=== PATIENT | male | born 1980 | race Two or more races ===

== ENCOUNTER 2024-10-23 17:08 | Inpatient (IN) | payer OTHER ==
[~2024-10-23] VITALS: Ht 172.7 cm; Wt 79.5 kg
[2024-10-23 19:05] LABS: BASOPHILS % (AUTO) 1.2 % (0.0-2.0); EOSINOPHILS % (AUTO) 1.7 % (1.0-6.0); HEMATOCRIT 36.7 % (41-53); HEMOGLOBIN 12.5 g/dL (13.5-17.5); LYMPHOCYTES # (AUTO) 1.8 K/uL (1.0-4.8); LYMPHOCYTES % (AUTO) 39.7 % (22.0-44.0); MEAN CORPUSCULAR HGB CONC 34.2 G/dL (31.0-37.0); MEAN CORPUSCULAR VOLUME 91 fL (80-100); MONOCYTES # (AUTO) 0.3 K/uL (0.1-1.0); MONOCYTES % (AUTO) 6.9 % (2.0-9.0); NEUTROPHILS # (AUTO) 2.3 K/uL (1.8-7.7); NEUTROPHILS % (AUTO) 50.5 % (40.0-70.0); PLATELET COUNT (AUTO) 103 K/uL (150-450); RED BLOOD CELL COUNT(AUTO) 4.05 MIL/uL (4.50-5.90); RED CELL DISTRIBUTION WIDTH 13.3 % (11.5-14.5); WHITE BLOOD COUNT (AUTO) 4.6 K/uL (4.5-11.0)
[2024-10-23 19:16] LABS: ANION GAP 3 mmol/L (8-16); CALCIUM, TOTAL 8.6 mg/dL (8.8-10.5); CARBON DIOXIDE 33 mmol/L (22-29); CHLORIDE 106 mmol/L (98-107); CREATININE 0.75 mg/dL (0.60-1.30); GLOMERULAR FILTR. RATE CALC > 60 mL/min (>60); GLUCOSE,RANDOM 95 mg/dL (70-110); POTASSIUM 4.7 mmol/L (3.5-5.1); SODIUM SERUM 142 mmol/L (136-145); UREA NITROGEN, BLOOD 20 mg/dL (7-18)
[2024-10-23 19:21] LABS: ALBUMIN 3.3 g/dL (3.4-5.0); BILIRUBIN,DIRECT 0.1 mg/dL (0.00-0.20); BILIRUBIN,TOTAL 0.4 mg/dL (0.1-1.0); TOTAL PROTEIN, SERUM 7.4 g/dL (6.4-8.2)
[2024-10-23 20:42] LABS: APPEARANCE,URINE CLEAR (CLEAR); BILIRUBIN,URINE NEGATIVE (NEGATIVE); COLOR,URINE YELLOW (YELLOW); GLUCOSE, URINE (UA) NEGATIVE (NEGATIVE); KETONES,URINE NEGATIVE (NEGATIVE); LEUKOCYTE ESTERASE ,URINE NEGATIVE (NEGATIVE); NITRATE,URINE NEGATIVE (NEGATIVE); OCCULT BLOOD,URINE NEGATIVE (NEGATIVE); PH,URINE 6.5 (5.0-8.0); PROTEIN,URINE TRACE mg/dL (NEGATIVE)
[2024-10-23] MEDS ORDERED: BUPR1FIL7 SL (20:43)
[2024-10-23] MEDS ORDERED: VALP250C48 PO (20:43)
[2024-10-23] MEDS ORDERED: LACT10SO85 PO (20:43)
[2024-10-23] MEDS ORDERED: FLUO-342 PO (20:43)
[2024-10-23] MEDS ORDERED: OLAN10TA74 PO (20:43)
[2024-10-23] MEDS: KETOROLAC TROMETHAMINE 30 MG/ML VIAL IM ONE (22:05)
[2024-10-23] MEDS ORDERED: MORPHINE SULFATE 2 MG/ML SYRINGE IVP PRN (22:45)
[2024-10-23] MEDS ORDERED: ONDANSETRON HCL 4 MG/2 ML VIAL IVP PRN (22:45)
[2024-10-23] MEDS ORDERED: ACETAMINOPHEN 325 MG TABLET PO PRN (22:45)
[2024-10-23] MEDS ORDERED: BISACODYL 10 MG RECTAL RECTAL SUPPOSITORY PR PRN (22:45)
[2024-10-23] MEDS ORDERED: ZOLPIDEM TARTRATE 5 MG TABLET PO PRN (22:45)
[2024-10-23] MEDS ORDERED: MAGNESIUM HYDROXIDE SUSPENSION 30 ML UDCUP PO PRN (22:45)
[2024-10-24] MEDS: HEPARIN SODIUM,PORCINE 5,000 UNITS/ML VIAL SQ SCH (01:36)
[2024-10-24 02:26] VITALS: BP 140/86; PULSE 50; RESP 18; TEMP 97.7; O2SAT 99
[2024-10-24 07:30] VITALS: BP 134/86; PULSE 50; RESP 18; TEMP 97.9; O2SAT 99
[2024-10-24] MEDS: DOCUSATE SODIUM 100 MG CAPSULE PO SCH (08:18)
[2024-10-24] MEDS: PANTOPRAZOLE SODIUM 40 MG DR TABLET PO SCH (08:18)
[2024-10-24] MEDS: HYDROCODONE/ACETAMINOPHEN 5-325 MG TABLET PO PRN (08:25)
[2024-10-25] MEDS ORDERED: MIRT-89 PO (21:21)
== END 2024-10-24 22:50 | DRG 552 ==
LOC: EMS 17:08 → EDH 22:32 → 6N 10-24 01:47
PROVIDERS: ADMIT Internal Medicine; ATTEND Internal Medicine
DX: M54.50 Low back pain, unspecified (principal); M54.9 Dorsalgia, unspecified; F29 Unspecified psychosis not due to a substance or known physiological condition; K59.00 Constipation, unspecified; D64.9 Anemia, unspecified; F20.9 Schizophrenia, unspecified; G89.29 Other chronic pain; R15.9 Full incontinence of feces; R26.2 Difficulty in walking, not elsewhere classified; Z79.899 Other long term (current) drug therapy
CPT/HCPCS: 71045; 80048; 80076; 81003; 85025; 97116; 97162; 99285; G0378; J1644; J1885; 36415-L1; 36415-TC

== ENCOUNTER 2024-10-25 15:04 | Inpatient (IN) | payer OTHER ==
[~2024-10-25] VITALS: Ht 170.2 cm; Wt 68.2 kg
[~2024-10-25 15:04] MED LIST: BUPR1FIL7 SL; FLUO-342 PO; LACT10SO85 PO; OLAN10TA74 PO; VALP250C48 PO
[2024-10-25] MEDS ORDERED: ONDANSETRON HCL 4 MG/2 ML VIAL IVP PRN (21:15)
[2024-10-25] MEDS ORDERED: MIRT-89 PO (21:21)
[2024-10-25 21:25] VITALS: BP 147/100; PULSE 54; RESP 20; TEMP 97.6; O2SAT 100
[2024-10-25] MEDS: KETOROLAC TROMETHAMINE 15 MG/ML VIAL IVP PRN (21:59)
[2024-10-25] MEDS: HEPARIN SODIUM,PORCINE 5,000 UNITS/ML VIAL SQ SCH (22:14)
[2024-10-25] MEDS: OLANZapine 10 MG TABLET PO SCH (22:14)
[2024-10-25] MEDS: VALPROIC ACID 250 MG CAPSULE PO SCH (22:15)
[2024-10-26 05:09] VITALS: BP 117/72; PULSE 49; RESP 18; TEMP 97.6; O2SAT 98
[2024-10-26 08:03] LABS: BASOPHILS % (AUTO) 0.8 % (0.0-2.0); EOSINOPHILS % (AUTO) 2.6 % (1.0-6.0); HEMATOCRIT 34.9 % (41-53); LYMPHOCYTES # (AUTO) 2.2 K/uL (1.0-4.8); LYMPHOCYTES % (AUTO) 54.2 % (22.0-44.0); MEAN CORPUSCULAR HEMOGLOBIN 31.2 pg (26.0-34.0); MEAN CORPUSCULAR HGB CONC 34.4 G/dL (31.0-37.0); MEAN CORPUSCULAR VOLUME 91 fL (80-100); MONOCYTES # (AUTO) 0.3 K/uL (0.1-1.0); MONOCYTES % (AUTO) 6.8 % (2.0-9.0); NEUTROPHILS # (AUTO) 1.5 K/uL (1.8-7.7); NEUTROPHILS % (AUTO) 35.6 % (40.0-70.0); PLATELET COUNT (AUTO) 108 K/uL (150-450); RED BLOOD CELL COUNT(AUTO) 3.85 MIL/uL (4.50-5.90); WHITE BLOOD COUNT (AUTO) 4.1 K/uL (4.5-11.0)
[2024-10-26 08:12] LABS: ANION GAP 7 mmol/L (8-16); CALCIUM, TOTAL 8.1 mg/dL (8.8-10.5); CARBON DIOXIDE 29 mmol/L (22-29); CHLORIDE 108 mmol/L (98-107); CREATININE 0.72 mg/dL (0.60-1.30); GLOMERULAR FILTR. RATE CALC > 60 mL/min (>60); GLUCOSE,RANDOM 88 mg/dL (70-110); POTASSIUM 3.8 mmol/L (3.5-5.1); SODIUM SERUM 144 mmol/L (136-145); UREA NITROGEN, BLOOD 20 mg/dL (7-18)
[2024-10-26 08:53] VITALS: BP 117/73; PULSE 49; RESP 19; TEMP 97.6; O2SAT 98
[2024-10-26] MEDS: LACTULOSE 20 GM/30 ML SOLUTION UDCUP PO SCH (08:55)
[2024-10-26] MEDS: FLUoxetine HCL 10 MG CAPSULE PO SCH (08:55)
[2024-10-26] MEDS: DOCUSATE SODIUM 100 MG CAPSULE PO SCH (08:55)
[2024-10-26] MEDS ORDERED: VALPROIC ACID 250 MG CAPSULE PO SCH (09:00)
[2024-10-26] MEDS: LORazepam 1 MG TABLET PO PRN (10:08)
[2024-10-26] MEDS: BUPRENORPHINE HCL/NALOXONE HCL 8-2 MG SUBLINGUAL TABLET SL SCH (16:54)
[2024-10-26 20:20] VITALS: BP 121/76; PULSE 57; RESP 18; TEMP 97.8; O2SAT 97
[2024-10-26] MEDS ORDERED: OLANZapine 10 MG TABLET PO SCH (21:00)
[2024-10-27 05:23] VITALS: BP 113/68; PULSE 53; RESP 20; TEMP 97.9; O2SAT 97
[2024-10-27 08:16] VITALS: BP 131/88; PULSE 60; RESP 18; TEMP 97.6; O2SAT 98
[2024-10-27] MEDS: MethylPREDNISolone 4 MG TABLET PO SCH (08:32)
[2024-10-27] MEDS ORDERED: DICLOFENAC SODIUM 1% 100 GM GEL [2GM] TP PRN (10:15)
[2024-10-27] MEDS: LIDOCAINE 5% TRANSDERMAL PATCH TD SCH (12:32)
[2024-10-27] MEDS: GABAPENTIN 100 MG CAPSULE PO SCH (12:32)
[2024-10-27] MEDS: ACETAMINOPHEN 500 MG TABLET PO SCH (12:33)
[2024-10-27 16:44] VITALS: BP 125/72; PULSE 64; RESP 18; TEMP 98.3; O2SAT 95
[2024-10-27] MEDS: GABAPENTIN 300 MG CAPSULE PO SCH (16:53)
[2024-10-27 20:00] VITALS: BP 131/89; PULSE 68; RESP 18; TEMP 98.3; O2SAT 95
[2024-10-27] MEDS: ACETAMINOPHEN 325 MG TABLET PO PRN (20:43)
[2024-10-27] MEDS: -LIDODERM PATCH NOTE- MISC SCH (20:46)
[2024-10-27] MEDS: MIRTAZAPINE 15 MG TABLET PO SCH (20:48)
[2024-10-27] MEDS ORDERED: MIRTAZAPINE 15 MG TABLET PO SCH (21:00)
[2024-10-28 05:10] VITALS: BP 121/69; PULSE 59; RESP 18; TEMP 98; O2SAT 96
[2024-10-28 08:25] VITALS: BP 119/79; PULSE 56; RESP 18; TEMP 97.7; O2SAT 97
[2024-10-28 08:26] LABS: BASOPHILS % (AUTO) 0.5 % (0.0-2.0); EOSINOPHILS % (AUTO) 0.1 % (1.0-6.0); HEMATOCRIT 35.1 % (41-53); HEMOGLOBIN 12.3 g/dL (13.5-17.5); LYMPHOCYTES # (AUTO) 1.4 K/uL (1.0-4.8); LYMPHOCYTES % (AUTO) 16.3 % (22.0-44.0); MEAN CORPUSCULAR HEMOGLOBIN 31.6 pg (26.0-34.0); MEAN CORPUSCULAR HGB CONC 35.1 G/dL (31.0-37.0); MEAN CORPUSCULAR VOLUME 90 fL (80-100); MONOCYTES # (AUTO) 0.4 K/uL (0.1-1.0); MONOCYTES % (AUTO) 4.3 % (2.0-9.0); NEUTROPHILS # (AUTO) 6.9 K/uL (1.8-7.7); NEUTROPHILS % (AUTO) 78.8 % (40.0-70.0); PLATELET COUNT (AUTO) 127 K/uL (150-450); RED CELL DISTRIBUTION WIDTH 13.2 % (11.5-14.5); WHITE BLOOD COUNT (AUTO) 8.7 K/uL (4.5-11.0)
[2024-10-28 08:38] LABS: ANION GAP 4 mmol/L (8-16); CALCIUM, TOTAL 8.4 mg/dL (8.8-10.5); CARBON DIOXIDE 30 mmol/L (22-29); CHLORIDE 104 mmol/L (98-107); CREATININE 0.67 mg/dL (0.60-1.30); GLOMERULAR FILTR. RATE CALC > 60 mL/min (>60); GLUCOSE,RANDOM 106 mg/dL (70-110); POTASSIUM 4.6 mmol/L (3.5-5.1); SODIUM SERUM 138 mmol/L (136-145); UREA NITROGEN, BLOOD 14 mg/dL (7-18)
[2024-10-28] MEDS: BUPRENORPHINE HCL/NALOXONE HCL 8-2 MG SUBLINGUAL TABLET SL SCH (09:10)
[2024-10-28] MEDS ORDERED: GABA-1181 PO (12:04)
[2024-10-28] MEDS ORDERED: -Lidoderm Patch Note- MISC (12:04)
[2024-10-28] MEDS ORDERED: ACET-3385 PO (12:04)
[2024-10-28] MEDS ORDERED: DICL100G60 TP (12:04)
[2024-10-28] MEDS ORDERED: OLANZapine 10 MG TABLET PO SCH (21:00)
== END 2024-10-28 19:45 | DRG 552 ==
LOC: EMS 15:04 → EDH 20:19 → 6S 21:10
PROVIDERS: ADMIT Internal Medicine; ATTEND Internal Medicine
DX: M47.26 Other spondylosis with radiculopathy, lumbar region (principal); F11.20 Opioid dependence, uncomplicated; R00.1 Bradycardia, unspecified; M48.07 Spinal stenosis, lumbosacral region; F25.1 Schizoaffective disorder, depressive type
CPT/HCPCS: 72148; 80048; 83735; 85025; 97162; 97165; 97535; 99285; J1644; J1885; J7509

== ENCOUNTER 2024-11-21 14:58 | Inpatient (IN) | payer OTHER ==
[~2024-11-21] VITALS: Ht 170.2 cm; Wt 67.5 kg
[~2024-11-21 14:58] MED LIST changes: +-Lidoderm Patch Note- MISC; +ACET-3385 PO; +DICL100G60 TP; +GABA-1181 PO; +MIRT-89 PO
[2024-11-21] MEDS: KETOROLAC TROMETHAMINE 30 MG/ML VIAL IVP ONE (15:38)
[2024-11-21] MEDS: ACETAMINOPHEN 500 MG TABLET PO ONE (15:38)
[2024-11-21 16:19] LABS: BASOPHILS % (AUTO) 0.4 % (0.0-2.0); EOSINOPHILS % (AUTO) 2.7 % (1.0-6.0); HEMATOCRIT 37.1 % (41-53); HEMOGLOBIN 12.8 g/dL (13.5-17.5); LYMPHOCYTES # (AUTO) 1.8 K/uL (1.0-4.8); MEAN CORPUSCULAR HEMOGLOBIN 31.5 pg (26.0-34.0); MEAN CORPUSCULAR HGB CONC 34.4 G/dL (31.0-37.0); MEAN CORPUSCULAR VOLUME 92 fL (80-100); MONOCYTES # (AUTO) 0.6 K/uL (0.1-1.0); MONOCYTES % (AUTO) 12.9 % (2.0-9.0); NEUTROPHILS # (AUTO) 1.9 K/uL (1.8-7.7); PLATELET COUNT (AUTO) 148 K/uL (150-450); RED BLOOD CELL COUNT(AUTO) 4.05 MIL/uL (4.50-5.90); RED CELL DISTRIBUTION WIDTH 13.6 % (11.5-14.5); WHITE BLOOD COUNT (AUTO) 4.4 K/uL (4.5-11.0)
[2024-11-21 16:21] LABS: ANION GAP 7 mmol/L (8-16); CALCIUM, TOTAL 8.6 mg/dL (8.8-10.5); CARBON DIOXIDE 32 mmol/L (22-29); CHLORIDE 102 mmol/L (98-107); CREATININE 0.77 mg/dL (0.60-1.30); GLOMERULAR FILTR. RATE CALC > 60 mL/min (>60); GLUCOSE,RANDOM 96 mg/dL (70-110); POTASSIUM 4.1 mmol/L (3.5-5.1); SODIUM SERUM 141 mmol/L (136-145); UREA NITROGEN, BLOOD 8 mg/dL (7-18)
[2024-11-21 16:27] LABS: ALBUMIN 3.3 g/dL (3.4-5.0); BILIRUBIN,DIRECT 0.1 mg/dL (0.00-0.20); BILIRUBIN,TOTAL 0.5 mg/dL (0.1-1.0); TOTAL PROTEIN, SERUM 7.4 g/dL (6.4-8.2)
[2024-11-21 16:30] LABS: B-TYPE NATRIURETIC PEPTIDE 7 pg/mL (0-100)
[2024-11-21 16:31] LABS: CREATINE KINASE, TOTAL ONLY 106 U/L (39-308); TROPONIN I-HIGH SENSITIVITY Less Than 4 ng/L (<76)
[2024-11-21] MEDS ORDERED: MAGNESIUM HYDROXIDE SUSPENSION 30 ML UDCUP PO PRN (17:00)
[2024-11-21 21:19] VITALS: BP_SYST 127; BP_SYST 154; BP_DIAS 77; BP_DIAS 93; PULSE 66; PULSE 72; RESP 19; TEMP 97.1; TEMP 97.5; O2SAT 98
[2024-11-21 21:25] VITALS: BP 154/93; PULSE 72; RESP 19; TEMP 97.1; O2SAT 98
[2024-11-21] MEDS: HEPARIN SODIUM,PORCINE 5,000 UNITS/ML VIAL SQ SCH (23:43)
[2024-11-22] VITALS (7 sets, daily range): BP systolic 109–146; BP diastolic 72–96; PULSE 66–83; RESP 17–20; TEMP 97.7–98.2; O2SAT 95–99
[2024-11-22 01:19] LABS: COVID AG,FIA SOURCE NASAL SWAB
[2024-11-22 01:25] LABS: INFLUENZA TYPE A NEGATIVE FOR TYPE A (NEGATIVE); INFLUENZA TYPE B NEGATIVE FOR TYPE B (NEGATIVE)
[2024-11-22 01:26] LABS: SARS-COV2 (COVID) ANTIGEN,FIA Negative (Negative)
[2024-11-22] MEDS: ACETAMINOPHEN 325 MG TABLET PO PRN (05:02)
[2024-11-22] MEDS: KETOROLAC TROMETHAMINE 15 MG/ML VIAL IVP ONE (05:39)
[2024-11-22] MEDS ORDERED: BUPR1TAB45 SL (06:32)
[2024-11-22] MEDS: BUPRENORPHINE HCL/NALOXONE HCL 2-0.5 MG SUBLINGUAL TABLET SL SCH (08:30)
[2024-11-22] MEDS: FAMOTIDINE 20 MG TABLET PO SCH (08:30)
[2024-11-22] MEDS: FUROSEMIDE 20 MG TABLET PO SCH (11:35)
[2024-11-22] MEDS ORDERED: IOHEXOL 350 MG/ML 100 ML VIAL ONE (12:08)
[2024-11-22] MEDS ORDERED: SODIUM CHLORIDE 0.9% 100 ML ONE (12:09)
[2024-11-22] MEDS ORDERED: 0.9% SODIUM CHLORIDE 10 ML SYRINGE IVP ONE (12:09)
[2024-11-22] MEDS: TraMADol HCL 50 MG TABLET PO PRN (14:36)
[2024-11-22] MEDS: OLANZapine 5 MG TABLET PO SCH (20:44)
[2024-11-22] MEDS: ZOLPIDEM TARTRATE 5 MG TABLET PO PRN (20:45)
[2024-11-23 06:54] VITALS: BP 126/88; PULSE 72; RESP 18; TEMP 97.7; O2SAT 99
[2024-11-23 08:15] VITALS: BP 125/85; PULSE 63; RESP 18; TEMP 97.7; O2SAT 97
[2024-11-23 08:33] LABS: ANION GAP 5 mmol/L (8-16); CALCIUM, TOTAL 8.6 mg/dL (8.8-10.5); CARBON DIOXIDE 30 mmol/L (22-29); CHLORIDE 103 mmol/L (98-107); CREATININE 0.73 mg/dL (0.60-1.30); GLOMERULAR FILTR. RATE CALC > 60 mL/min (>60); GLUCOSE,RANDOM 99 mg/dL (70-110); POTASSIUM 3.9 mmol/L (3.5-5.1); SODIUM SERUM 138 mmol/L (136-145); UREA NITROGEN, BLOOD 16 mg/dL (7-18)
[2024-11-23] MEDS ORDERED: GADOTERATE MEGLUMINE 10 MMOL/20 ML VIAL IVP ONE (14:02)
[2024-11-23 19:43] VITALS: BP 110/81; PULSE 78; RESP 18; TEMP 98.2; O2SAT 95
[2024-11-23] MEDS: MIRTAZAPINE 15 MG TABLET PO SCH (20:32)
[2024-11-23] MEDS: DIVALPROEX SODIUM 500 MG DR TABLET PO SCH (20:32)
[2024-11-24 04:00] VITALS: BP 129/75; PULSE 65; RESP 18; TEMP 97.5; O2SAT 98
[2024-11-24 08:58] VITALS: BP 115/82; PULSE 68; RESP 18; TEMP 97.9; O2SAT 96
[2024-11-24] MEDS ORDERED: MAGN-169 PO (11:17)
[2024-11-24] MEDS ORDERED: FURO20TA5 PO (11:17)
== END 2024-11-24 19:40 | DRG 948 ==
LOC: EMS 14:58 → EDH 16:59 → 5S 21:00 → 6S 11-22 13:12
PROVIDERS: ADMIT Internal Medicine; ATTEND Internal Medicine
DX: R60.0 Localized edema (principal); K86.2 Cyst of pancreas; Z20.822 Contact with and (suspected) exposure to COVID-19; K76.0 Fatty (change of) liver, not elsewhere classified; F20.9 Schizophrenia, unspecified; R74.01 Elevation of levels of liver transaminase levels; D64.9 Anemia, unspecified; K59.00 Constipation, unspecified
CPT/HCPCS: 71045; 74177; 74182; 76700; 80048; 80076; 82550; 83880; 84484; 85025; 86301; 87804; 93005; 93306; 93970; 96374; 99285; J1644; J1885; J7050; 36415-L1; 36415-TC

== ENCOUNTER 2025-07-17 16:32 | Emergency (ER) | payer OTHER ==
[~2025-07-17] VITALS: Ht 170.2 cm; Wt 90.0 kg
[~2025-07-17 16:32] MED LIST changes: --Lidoderm Patch Note- MISC; +BUPR1TAB45 SL; -DICL100G60 TP; +FURO20TA5 PO; -GABA-1181 PO; -LACT10SO85 PO; +MAGN-169 PO
[2025-07-17 17:14] VITALS: BP 112/69; RESP 18; O2SAT 98
[2025-07-17] MEDS: LIDOCAINE 1% 10 ML VIAL SQ ONE (20:00)
[2025-07-17] MEDS: CLINDAMYCIN PHOS 150 MG/ML 4 ML VIAL IM ONE (20:00)
== END 2025-07-17 21:42 ==
LOC: EMS 16:35
DX: L02.512 Cutaneous abscess of left hand (principal); F20.9 Schizophrenia, unspecified; Z79.891 Long term (current) use of opiate analgesic; Z79.899 Other long term (current) drug therapy
CPT/HCPCS: 10060; 96372; 99283; J3490